=== PATIENT | male | born 1985 | race Caucasian/White ===

== ENCOUNTER 2020-03-27 18:53 | Observation (INO) | payer OTHER, SELFPAY ==
[2020-03-27 18:57] VITALS: BP 184/79; PULSE 100; RESP 16; TEMP 36.6; O2SAT 98; BMI 29.4
[2020-03-27 22:38] VITALS: BP 137/67; PULSE 90; RESP 16; O2SAT 99
--- NOTE | 2020-03-27 22:39 | DI.RAD.S_ITS ---
PROCEDURE: XR FINGER RT MIN 2V INDICATIONS: Injury/pain TECHNIQUE: AP hand, 2 views of the right 3rd finger(s) acquired. COMPARISON: None. FINDINGS: Bones: No fractures or dislocations. No suspicious bony lesions. Soft tissues: No suspicious soft tissue calcifications. No radiodense foreign bodies. No soft tissue gas. IMPRESSION: No fracture. No osseous lesion. If symptoms and/or clinical suspicion for pathology persists, further assessment with repeat radiographs (7-10 days) or advanced imaging (e.g. CT, MRI or bone scan) should be considered. Dictated by: Heidi Lombardo MD, PhD on 03/28/2020 at 9:10 Approved by: Heidi Lombardo MD, PhD on 03/28/2020 at 9:11
--- NOTE | 2020-03-27 22:39 | ED_ITS ---
HPI - Wound/Laceration General Chief Complaint: Wound/Laceration Stated Complaint: middle finger right hand redness and swelling Time Seen by Provider: 03/27/20 22:24 Source: patient Mode of arrival: Ambulatory History of Present Illness HPI narrative: Patient bitten by his dog yesterday 6:30 p.m.. Complains of right middle finger pain and swelling with discharge at the volar PIP joint. There is edema. No fever chills. Tetanus up-to-date. Related Data Allergies Allergy/AdvReac Type Severity Reaction Status Date / Time diphenhydramine Allergy Unknown Verified 03/27/20 19:00 [From Triaminic Allergy] Review of Systems Review of Systems Narrative: GENERAL: Denies chills, fatigue, malaise, fever, sweats. HEENT: Denies sinus pain, ear pain, sore throat, difficulty swallowing RESPIRATORY: Denies dyspnea, cough CARDIOVASCULAR: Denies chest pain, palpitations, edema, GASTROINTESTINAL: Denies nausea, vomiting, abdominal pain, diarrhea, constipation, melena. : Denies dysuria, frequency, hematuria MUSCULOSKELETAL: Complains of bony pain SKIN: Denies rash, skin lesions NEUROLOGIC: Denies weakness, headache, numbness, change in speech, confusion PSYCHIATRIC: No SI or HI or hallucinations ROS Unobtainable: All systems reviewed & are unremarkable except as noted in HPI and below Patient History Social History household members: significant other and children Smoking Status: Current every day smoker alcohol intake: never Smoking Status: Current every day smoker Substance Use Type: does not use Exam Narrative Exam Narrative: GENERAL: patient appears stated age. Well-nourished, well- developed patient, in no distress, not toxic not dyspneic HEAD: Normocephalic. . EXTREMITIES: No gross deformities. Examination right hand. There is tenderness edema at the PIP joint of the middle finger. There is small pustule at the volar surface of the joint as well. Finger held in slight flexion. Mild pain with extension of the finger. There is circumferential edema at that joint area. Tenderness to the volar surface of the PIP joint. Early Knavel signs present NEURO: AOx4. SKIN: Warm and dry PSYCH: Not anxious, is cooperative Initial Vital Signs Initial Vital Signs: Vital Signs Temperature 97.8 F 03/27/20 18:57 Pulse Rate 100 H 03/27/20 18:57 Respiratory Rate 16 03/27/20 18:57 Blood Pressure 184/79 H 03/27/20 18:57 Pulse Oximetry 98 03/27/20 18:57 Course Course Course Narrative: Will need admission after consult with Orthopedics. Early t enosynovitis Decision to Admit Date: 03/28/20 Decision to Admit time: 00:43 Orders Ordered: ED Orders 03/27/20 22:39 XR finger RT min 2V Stat 03/28/20 00:10 Complete Blood Count AUTO DIFF Stat Comprehensive Metabolic Panel Stat Lactate (Lactic Acid) Stat Procalcitonin Stat 03/28/20 00:55 COVID19 Stat Enoxaparin Sodium (Enoxaparin 40 Mg/0.4 Ml Syringe) 40 mg SUBCUT DAILY ORTEGA Ketorolac Tromethamine (Ketorolac 10 Mg Tablet) 10 mg PO Q6HR PRN PRN Reason: Pain, Moderate (4-6) Stop: 04/02/20 01:11 Naloxone HCl (Naloxone 0.4 Mg/Ml Vial) 0.2 mg IV Q2MIN PRN PRN Reason: Opiate Reversal Ondansetron HCl (Ondansetron 4 Mg Odt) 4 mg PO Q8HR PRN PRN Reason: Nausea And Vomiting Discontinued Medications Amoxicillin/Clavulanate Potassium (Amoxicillin/Clav 875/125 Mg) 1 tab PO NOW ONE Stop: 03/27/20 22:39 Last Admin: 03/27/20 22:52 Dose: 1 tab Documented by: GILMER Vancomycin HCl (Vancomycin) 1,000 mg in 200 mls @ 200 mls/hr IV NOW ONE Stop: 03/28/20 01:33 Last Infusion: 03/28/20 01:42 Dose: 200 mls/hr Documented by: Admin: 03/28/20 01:20 Dose: 200 mls/hr Documented by: THERON Ceftriaxone Sodium/Dextrose (Rocephin) 1 gm in 50 mls @ 100 mls/hr IV NOW ONE Stop: 03/28/20 01:03 Last Infusion: 03/28/20 01:17 Dose: 0 mls/hr Documented by: Infusion: 03/28/20 01:16 Dose: 0 mls/hr Documented by: Admin: 03/28/20 00:49 Dose: 100 mls/hr Documented by: GILMER Reevaluation(s) Reevaluation #1: Reviewed results and treatment plan with patient. He agrees for admission Time: 00:44 Consultations Consultation #1: Spoke with orthopedics Dr. Pineda. Recommends admission to hospitalist for IV antibiotics and recheck in the morning Time: 00:44 Consultation #2: Spoke with hospitalist, she will admit Time: 00:44 Vital Signs Vital signs: Vital Signs - 8 hr 03/27/20 22:38 Pulse Rate 90 Respiratory Rate 16 Blood Pressure 137/67 Pulse Oximetry 99 MDM - Wound/Laceration Differential Diagnosis Differential diagnosis: Likely other (Flexor tenosynovitis) Lab Data Attestation: I reviewed the patient's lab results. Result diagrams: 03/28/20 00:10 03/28/20 00:10 Labs: Lab Results 03/28/20 03/28/20 03/28/20 Range/Units 00:10 00:10 00:10 WBC 8.8 (4.5-11.0) X10^3/uL RBC 5.18 (4.5-5.9) X10^6/uL Hgb 15.4 (13.5-17.5) g/dL Hct 45.3 (41-53) % MCV 87.5 (80-100) fL MCH 29.6 (26-34) PG MCHC 33.9 (30-36) % RDW 12.3 (11.6-14.8) % Plt Count 255 (150-400) X10^3/uL Neut % (Auto) 47.1 L (50-75) % Lymph % (Auto) 42.3 H (25-40) % [place] % (Auto) 8.5 (3-14) % Eos % (Auto) 1.9 L (2-4) % Baso % (Auto) 0.2 (0-2) % Neut # (Auto) 4100 (2967-2299) /uL Lymph # (Auto) 3700 (1843-9412) /uL [place] # (Auto) 700 (0-900) /uL Eos # (Auto) 200 (0-450) /uL Baso # (Auto) 0 (0-100) /uL Sodium 140 (137-145) mmol/L Potassium 3.6 (3.4-5.1) mmol/L Chloride 104 (98-107) mmol/L Carbon Dioxide 31 (22-32) mmol/L BUN 16 (9-20) mg/dL Creatinine 1.11 (0.66-1.25) mg/dL Estimated GFR > 60.0 (>60) mL/min BUN/Creatinine Ratio 14.4 (6-22) Glucose 97 (70-100) mg/dL Lactate (0.7-2.1) mmol/L Calcium 9.6 (8.4-10.2) mg/dL Total Bilirubin 0.3 (0.2-1.3) mg/dL AST 41 (17-59) IU/L ALT 53 H (<50) IU/L Alkaline Phosphatase 62 (38-126) U/L Total Protein 7.9 (6.3-8.2) g/dL Albumin 4.6 (3.5-5.0) g/dL Globulin 3.3 (1.7-4.1) g/dL Albumin/Globulin Ratio 1.4 (1.0-2.8) Procalcitonin < 0.05 (<0.5) ng/mL COVID-19 PCR (Negative) 03/28/20 03/28/20 Range/Units 00:10 00:55 WBC (4.5-11.0) X10^3/uL RBC (4.5-5.9) X10^6/uL Hgb (13.5-17.5) g/dL Hct (41-53) % MCV (80-100) fL MCH (26-34) PG MCHC (30-36) % RDW (11.6-14.8) % Plt Count (150-400) X10^3/uL Neut % (Auto) (50-75) % Lymph % (Auto) (25-40) % [place] % (Auto) (3-14) % Eos % (Auto) (2-4) % Baso % (Auto) (0-2) % Neut # (Auto) (2198-4926) /uL Lymph # (Auto) (3345-3313) /uL [place] # (Auto) (0-900) /uL Eos # (Auto) (0-450) /uL Baso # (Auto) (0-100) /uL Sodium (137-145) mmol/L Potassium (3.4-5.1) mmol/L Chloride (98-107) mmol/L Carbon Dioxide (22-32) mmol/L BUN (9-20) mg/dL Creatinine (0.66-1.25) mg/dL Estimated GFR (>60) mL/min BUN/Creatinine Ratio (6-22) Glucose (70-100) mg/dL Lactate 1.2 (0.7-2.1) mmol/L Calcium (8.4-10.2) mg/dL Total Bilirubin (0.2-1.3) mg/dL AST (17-59) IU/L ALT (<50) IU/L Alkaline Phosphatase (38-126) U/L Total Protein (6.3-8.2) g/dL Albumin (3.5-5.0) g/dL Globulin (1.7-4.1) g/dL Albumin/Globulin Ratio (1.0-2.8) Procalcitonin (<0.5) ng/mL COVID-19 PCR Negative (Negative) Imaging Data Extremity x-ray #1: Radiologist's Impression: X-ray results faxed. Right middle finger. No acute fracture no radiopaque foreign body. Mild soft tissue swelling 3rd digit. MDM Narrative Medical decision making narrative: Appropriate for admission, early flexor tenosynovitis, reviewed with orthopedist Discharge Plan Departure Patient Disposition: Admitted as Observation Clinical Impression: Flexor tenosynovitis of finger Admit Date/Time: 03/28/20 00:58 Admit Provider: Meliza Diggs
[2020-03-27] MEDS: AMOXICILLIN/CLAV 875/125 MG 1 TAB PO (22:52)
[2020-03-28] VITALS (7 sets, daily range): BP systolic 110–127; BP diastolic 60–73; PULSE 68–74; RESP 15–18; TEMP 36.3–36.9; O2SAT 97–98; BMI 29.2
[2020-03-28 00:44] LABS: Add Manual Diff / Slide Review NO; Basophils Absolute Auto 0 /uL (0-100); Basophils Percent Auto 0.2 % (0-2); Eosinophils Absolute Auto 200 /uL (0-450); Eosinophils Percent Auto 1.9 % (2-4); Hematocrit 45.3 % (41-53); Hemoglobin 15.4 g/dL (13.5-17.5); Lymphocytes Absolute Auto 3700 /uL (1100-4500); Lymphocytes Percent Auto 42.3 % (25-40); Mean Corpuscular HGB Conc 33.9 % (30-36); Mean Corpuscular Hemoglobin 29.6 PG (26-34); Mean Corpuscular Volume 87.5 fL (80-100); Monocytes Absolute Auto 700 /uL (0-900); Monocytes Percent Auto 8.5 % (3-14); Neutrophils Absolute Auto 4100 /uL (1500-7000); Neutrophils Percent Auto 47.1 % (50-75); Platelet Count 255 X10^3/uL (150-400); Red Blood Cell Count 5.18 X10^6/uL (4.5-5.9); Red Cell Distribution Width 12.3 % (11.6-14.8); White Blood Cell Count 8.8 X10^3/uL (4.5-11.0)
[2020-03-28] MEDS: CEFTRIAXONE 1 GM/50 ML FROZ.PIGGY IV (00:49)
[2020-03-28 00:51] LABS: Lactate (Lactic Acid) 1.2 mmol/L (0.7-2.1)
[2020-03-28 01:10] LABS: Alanine Aminotransferase 53 IU/L (<50); Albumin 4.6 g/dL (3.5-5.0); Albumin Globulin Ratio 1.4 (1.0-2.8); Alkaline Phosphatase 62 U/L (38-126); Aspartate Aminotransferase 41 IU/L (17-59); BUN Creatinine Ratio 14.4 (6-22); Bilirubin Total 0.3 mg/dL (0.2-1.3); Blood Urea Nitrogen 16 mg/dL (9-20); Calcium 9.6 mg/dL (8.4-10.2); Carbon Dioxide 31 mmol/L (22-32); Chloride 104 mmol/L (98-107); Estimated Glomerular Filt Rate > 60.0 mL/min (>60); Globulin 3.3 g/dL (1.7-4.1); Glucose 97 mg/dL (70-100); HEMOLYSIS 20 (0-50); Potassium 3.6 mmol/L (3.4-5.1); Sodium 140 mmol/L (137-145); Total Protein 7.9 g/dL (6.3-8.2)
[2020-03-28] MEDS: VANCOMYCIN 1,000 MG/200 ML PIGGYBACK 200 MG IV (01:20)
[2020-03-28 01:25] LABS: COVID19 -Nasal RAPID Negative (Negative)
[2020-03-28 01:25] LABS: Procalcitonin < 0.05 ng/mL (<0.5)
--- NOTE | 2020-03-28 05:39 | PM.HP.1 ---
History of Present Illness History of Present Illness Date Patient Seen: 03/28/20 Time Patient Seen: 01:15 Chief complaint: middle finger right hand redness and swelling Narrative: Patient Nathan register a 34-year-old male present to the emergency room following being bitten by his dog yesterday 6:30 p.m. He complained of right middle finger pain and swelling with discharge at the volar PIP joint. There is edema. Patient denied nausea, vomiting, fever, body aches, and chills. Tetanus up-to-date. Patient's finger x-ray of the right 3rd finger demonstrated flexor tenosynovitis of finger, lactate 1.2, early Knavel signs present. ER consult with Ortho recommended patient be admitted for IV antibiotic treatment and evaluation for possible surgical I&D tomorrow. Patient History Surgical History (Updated 03/28/20 @ 06:15 by LOGAN Rondon) History of tonsillectomy Family & Social History Family History (Updated 03/28/20 @ 06:15 by LOGAN Rondon) Other Adopted Social History: household members fiancee and 4 children Prior Living Arrangements House Safety & Behavioral: Feels Safe in Current Yes Environment Been Physically Hurt or No Threatened By a Person Suicidal Ideation Description None Suicide Plan Description No Plan Tobacco & Substance use: Tobacco type cigarettes Smoking Status Current every day smoker Smoking packs per day 0.5 alcohol intake never Substance Use Type does not use Meds Home Medications and Allergies Allergies Allergy/AdvReac Type Severity Reaction Status Date / Time diphenhydramine Allergy Unknown Verified 03/27/20 19:00 [From Triaminic Allergy] Review of Systems Review of Systems ROS: Yes All systems reviewed with the patient and are negative except as otherwise documented Constitutional Constitutional: Reports system reviewed and no additional complaints, except as documented Eyes Eyes: Reports system reviewed and no additional complaints, except as documented ENT Ears, Nose, Mouth, and Throat: Yes system reviewed and no additional complaints, except as documented Cardiovascular Cardiovascular: Reports system reviewed and no additional complaints, except as documented Respiratory Respiratory: Reports system reviewed and no additional complaints, except as documented Gastrointestinal Gastrointestinal: Reports system reviewed and no additional complaints, except as documented Genitourinary Genitourinary: Reports system reviewed and no additional complaints, except as documented Musculoskeletal Musculoskeletal: Reports arthralgias, Reports joint swelling and Reports limited range of motion Comments: Right Hand 3rd finger Integumentary/Breasts Skin/Breast: Reports erythema, Reports skin pain and Reports skin swelling Neurologic Neurologic: Reports system reviewed and no additional complaints, except as documented Psychiatric Psychiatric: Reports system reviewed and no additional complaints, except as documented Endocrine Endocrine: Reports system reviewed and no additional complaints, except as documented Hematologic/Lymphatic Hematologic/Lymphatic: Reports system reviewed and no additional complaints, except as documented Allergic/Immunologic Allergic/Immunologic: Reports system reviewed and no additional complaints, except as documented Exam Vital Signs (past 8 hours): - 03/27/20 22:38 03/28/20 01:40 03/28/20 01:45 Temperature 97.6 F Pulse Rate 90 73 Respiratory Rate 16 18 Blood Pressure 137/67 123/66 Pulse Oximetry 99 97 97 Oxygen Delivery Method Room Air Oxygen Flow Rate 0 Narrative Exam Narrative: General: this is a well groomed well nourished male in no distress at this time HEENT: Normocephalic, atraumatic, extraocular muscles intact, oropharynx is clear and mucous membranes are moist, neck is supple and symmetrical, trachea is midline, no thyroid enlargement, nontender, with no masses palpated. Lungs: Auscultation of all lung self are clear without adventitious sounds wheezes rhonchi or rales Cardiac: S1-S2 with regular rate and rhythm without murmur, rubs or gallops, no carotid bruit. Abdomen soft, nontender, negative for clinically or masses, bowel sounds are present in all 4 quadrants, no guarding or rebound, no CVA tenderness. Musculoskeletal: Muscle strength and tone are equal within normal limits no deformity, crepitus, or effusions noted with the exception of the 3rd finger on the right hand see description under extremities. Extremities: No gross deformities. Examination right hand. There is tenderness edema at the PIP joint of the middle finger. There is small pustule at the volar surface of the joint as well. Finger held in slight flexion. Mild pain with extension of the finger. There is circumferential edema at that joint area. Tenderness to the volar surface of the PIP joint. Early Knavel signs present Skin: Warm dry and intact without rashes, ulcerations or petechiae with the exception of the above noted 3rd finger right hand. Neuro: Patient is alert and orientated x3, appropriate affect and mood, strength is 5/5 in all extremities, sensation to touch intact, cranial nerves no gross deficit noted. Objective Labs Result Diagrams: 03/28/20 00:10 03/28/20 00:10 Labs: Laboratory Results - last 24 hr 03/28/20 03/28/20 12 00:10 00:10 00:10 WBC 8.8 RBC 5.18 Hgb 15.4 Hct 45.3 MCV 87.5 MCH 29.6 MCHC 33.9 RDW 12.3 Plt Count 255 Neut % (Auto) 47.1 L Lymph % (Auto) 42.3 H [place] % (Auto) 8.5 Eos % (Auto) 1.9 L Baso % (Auto) 0.2 Neut # (Auto) 4100 Lymph # (Auto) 3700 [place] # (Auto) 700 Eos # (Auto) 200 Baso # (Auto) 0 Sodium 140 Potassium 3.6 Chloride 104 Carbon Dioxide 31 BUN 16 Creatinine 1.11 Estimated GFR > 60.0 BUN/Creatinine Ratio 14.4 Glucose 97 Lactate Calcium 9.6 Total Bilirubin 0.3 AST 41 ALT 53 H Alkaline Phosphatase 62 Total Protein 7.9 Albumin 4.6 Globulin 3.3 Albumin/Globulin Ratio 1.4 Procalcitonin < 0.05 COVID-19 PCR 03/28/20 03/28/20 00:10 00:55 WBC RBC Hgb Hct MCV MCH MCHC RDW Plt Count Neut % (Auto) Lymph % (Auto) [place] % (Auto) Eos % (Auto) Baso % (Auto) Neut # (Auto) Lymph # (Auto) [place] # (Auto) Eos # (Auto) Baso # (Auto) Sodium Potassium Chloride Carbon Dioxide BUN Creatinine Estimated GFR BUN/Creatinine Ratio Glucose Lactate 1.2 Calcium Total Bilirubin AST ALT Alkaline Phosphatase Total Protein Albumin Globulin Albumin/Globulin Ratio Procalcitonin COVID-19 PCR Negative Assessment & Plan Assessment & Plan narrative: Patient presented to the emergency room for a dog bite and trauma injury to the right hand 3rd finger. Finger x-ray demonstrated flexor tenosynovitis of the finger, lactate 1.2. ER consult with Ortho recommended patient be admitted for IV antibiotic and evaluation for possible surgical I&D. 1. Flexor tenosynovitis of the finger, right hand 3rd digit PIP joint, secondary to dog bite, acute, present on admission -finger x-ray: Noted soft tissue swelling of the 3rd digit representing flexor tenosynovitis of the finger of right hand 3rd digit. -patient was given IV: 1 g vancomycin, 1 g Rocephin, and 1 tab of Augmentin. -patient to be evaluated in the a.m. for possible surgical I&D -CBC within normal limits, CMP within normal limits, lactate 1.2, procalcitonin negative -vital signs monitored q.4 hours, monitoring for compartment syndrome/sepsis Code status: Full code COVID PCR: Negative Decision maker: Junior Wright [id number]:None VTE prophylaxis: Enoxaparin 40 mg Quality VTE Deep Vein Thrombosis/Pulmonary Embolism Present on Admission: Yes
--- NOTE | 2020-03-28 07:24 | P.CONS_ITS ---
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 He thinks on Tuesday. Bite to the middle finger volar surface of the PIP. Has a smaller more superficial bite marked dorsal at the same level. Yd later this became more swollen and painful at the volar wound. There is some swelling and redness and a pustule developed. Presented to the ER on 03/27/2020. There was some concern for early flexor tenosynovitis with a mildly flexed posture. He was admitted for observation IV antibiotics and evaluation for possible surgery. Denies numbness denies tingling. No other injuries. Denies fevers chills nausea vomiting. COVID was negative in the ER. Labs are otherwise within normal limits. initiated on IV antibiotics. This morning I had does not dorsum much of a change better or worse with his finger at endorses 3 focal pain right around the area of the bite with focal swelling. Does have a slight flexed posture but no fusiform swelling of the digit and is able to flex and extend the digit quite well. No streaking. Meds Home Medications and Allergies Allergies Allergy/AdvReac Type Severity Reaction Status Date / Time diphenhydramine Allergy Unknown Verified 03/27/20 19:00 [From Triaminic Allergy] Review of Systems Review of Systems ROS: Yes All systems reviewed with the patient and are negative except as otherwise documented Exam Vital Signs (past 8 hours): - 03/28/20 01:40 03/28/20 01:45 03/28/20 05:08 Temperature 97.6 F Pulse Rate 73 Respiratory Rate 18 Blood Pressure 123/66 Pulse Oximetry 97 97 97 03/28/20 06:00 Temperature 97.7 F Pulse Rate 72 Respiratory Rate 15 Blood Pressure 127/73 Pulse Oximetry 97 Oxygen Delivery Method Room Air Oxygen Flow Rate 0 Narrative Exam Narrative: Alert oriented male no acute distress HEENT exam normocephalic atraumatic Respiratory exam unlabored on room air lungs clear to auscultation CV exam regular rate and rhythm Skin exam multiple tattoos on the upper extremities Musculoskeletal exam moving all extremities freely. Right hand exam shows focal puncture wound just distal to the level of the PIP ulnarly on the volar surface of the middle finger right hand. There is some focal swelling and tenderness. No active drainage. Does hold the finger in a slightly flexed posture about 20? but is able to flex and extend all digits. No tenderness along the flexor tendon sheath in the palm or over the proximal phalanx. Sensation grossly intact to light touch median radial ulnar nerves. Full range of motion of the wrist. Objective Imaging Hand x-ray right: My impression: Three views of the [facility] AP oblique lateral demonstrate swelling around the volar PIP joint middle and proximal phalanx 3rd finger no evidence of fracture no foreign bodies. Labs Result Diagrams: 03/28/20 00:10 03/28/20 00:10 Labs: Laboratory Results - last 24 hr 03/28/20 03/28/20 03/28/20 00:10 00:10 00:10 WBC 8.8 RBC 5.18 Hgb 15.4 Hct 45.3 MCV 87.5 MCH 29.6 MCHC 33.9 RDW 12.3 Plt Count 255 Neut % (Auto) 47.1 L Lymph % (Auto) 42.3 H [place] % (Auto) 8.5 Eos % (Auto) 1.9 L Baso % (Auto) 0.2 Neut # (Auto) 4100 Lymph # (Auto) 3700 [place] # (Auto) 700 Eos # (Auto) 200 Baso # (Auto) 0 Sodium 140 Potassium 3.6 Chloride 104 Carbon Dioxide 31 BUN 16 Creatinine 1.11 Estimated GFR > 60.0 BUN/Creatinine Ratio 14.4 Glucose 97 Lactate Calcium 9.6 Total Bilirubin 0.3 AST 41 ALT 53 H Alkaline Phosphatase 62 Total Protein 7.9 Albumin 4.6 Globulin 3.3 Albumin/Globulin Ratio 1.4 Procalcitonin < 0.05 COVID-19 PCR 03/28/20 03/28/20 00:10 00:55 WBC RBC Hgb Hct MCV MCH MCHC RDW Plt Count Neut % (Auto) Lymph % (Auto) [place] % (Auto) Eos % (Auto) Baso % (Auto) Neut # (Auto) Lymph # (Auto) [place] # (Auto) Eos # (Auto) Baso # (Auto) Sodium Potassium Chloride Carbon Dioxide BUN Creatinine Estimated GFR BUN/Creatinine Ratio Glucose Lactate 1.2 Calcium Total Bilirubin AST ALT Alkaline Phosphatase Total Protein Albumin Globulin Albumin/Globulin Ratio Procalcitonin COVID-19 PCR Negative Assessment & Plan Assessment and plan (1) Dog bite of right hand including fingers with infection: Problem details: Patient is a focal puncture wound to the volar middle finger right hand with focal swelling and tenderness in that area with a pustule. He has a mildly flexed posture but otherwise focal tenderness to palpation rather than fusiform swelling or pain along the flexor tendon sheath. Presentation consistent with infected dog bite puncture wound rather than flexor tenosynovitis. I discussed with on going on infection can develop flexor tenosynovitis. Given the appearance of the puncture wound I do recommend a debridement of the wound. This will be left open to heal and he will start warm soapy soaks on postoperative day 1 and dressing changes. And would be appropriate for discharge with oral antibiotics after the debridement procedure. Discussed risks benefits and alternatives and risk for requiring additional surgery for persistent infection and risks of finger stiffness. He understands and agrees with the plan. The risks and benefits of the procedure have been discussed with the patient even opportunity to ask questions. The risks of surgery include but are not limited to infection, malunion, nonunion, persistence of pain, damage to nerves and blood vessels, posttraumatic arthritis, DVT, PE, cardiopulmonary complications and . The patient expressed a thorough understanding of the risks and benefits of surgery and has elected to proceed. Consent was signed. And the site was marked. Status: Acute
[2020-03-28] MEDS: ENOXAPARIN 40 MG/0.4 ML SYRINGE SUBCUT (08:25)
--- NOTE | 2020-03-28 09:38 | OT.IP.EVAL ---
Current Diagnoses Local infection of the skin and subcutaneous tissue, unspecified (03/28/20) Open bite of unspecified finger without damage to nail, initial encounter (03/28/20) Open bite of right hand, initial encounter (03/28/20) Bitten by dog, initial encounter (03/28/20) Surgery Performed Operation Date: 03/28/20 14:45 <No data on this case meets the specified criteria> Surgical History (Last Reviewed 03/28/20 @ 07:27 by Zina Deluca MD) History of tonsillectomy Occupational Therapy Inpatient Evaluation/Re-Eval M1 PT/OT-IP Prior Functional Status Start: 03/28/20 13:40 Freq: NEEDED Status: Active Protocol: Document 03/28/20 13:40 CGR (Rec: 03/28/20 13:47 CGR [id number]) Medical Review Prior Functional Status Medical History Reviewed Yes Communication Pt is an effective verbal communicator. Mobility and Gait Pt is IND at baseline Activities of Daily Living and IADL's Pt is IND at baseline Social History Household Members significant other,children Living Arrangements House Number of Floors (Floors) Two Floors Number of Stairs To Enter/Railing? Pt has no steps to enter and ~ 18 steps to the second floor with railing on L assending. 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 M2 OT-IP Current Condition Start: 03/28/20 13:40 Freq: Status: Active Protocol: Document 03/28/20 13:40 CGR (Rec: 03/28/20 13:47 CGR [id number]) Occupational Therapy Current Condition Current Condition Evaluation Date 03/28/20 Treatment Diagnosis fx tensoynovitis of the finger R hand 3rd digit PIP Diagnosis Onset Date 03/28/20 M3 OT- IP Subjective and Pain Start: 03/28/20 13:40 Freq: Status: Active Protocol: Document 03/28/20 13:40 CGR (Rec: 03/28/20 13:47 CGR [id number]) OT- Subjective Occupational Therapy Visit Type Type Initial Evaluation Visit Start Time 09:23 Visit Stop Time 09:38 Total Visit Minutes 15 OT Pain Assessment Pain When Pain Assessed At Rest Pain Present Pain Present Denied Pain M4 OT- IP ADL's Start: 03/28/20 13:40 Freq: Status: Active Protocol: Document 03/28/20 13:40 CGR (Rec: 03/28/20 13:47 CGR [id number]) OT [id number] Comments OT Self-Feeding Comments Not meal time OT ADL-Grooming General Evaluation Grooming Ability Independent OT ADL-Oral Care General Eval Oral Care Ability Independent OT ADL-Dressing General Eval Upper Body Dressing Ability Independent Lower Body Dressing Ability Independent OT ADL-Toileting General Evaluation Toileting Ability Independent OT ADL-Bathing Comments OT Bathing Comments Not performed M5 OT- IP IADL's Start: 03/28/20 13:40 Freq: Status: Active Protocol: Document 03/28/20 13:40 CGR (Rec: 03/28/20 13:47 CGR [id number]) OT-Instrumental Activities of Daily Living Deficits IADL Deficits Identified No Deficits Home Safety Awareness Awareness of Need for Assistance at Home Good Awareness Ability to Problem Solve Emergency Able to Problem Solve Situations M6 OT- IP Functional Cognition Start: 03/28/20 13:40 Freq: Status: Active Protocol: Document 03/28/20 13:40 CGR (Rec: 03/28/20 13:47 CGR [id number]) Cognitive Factors Limiting Selfcare Function Cognitive Ability Level of Alertness Alert Patient Orientation Name,Age,Birthday,Month,Date, Year,Day of Week,Place, Situation Attention Span Ability Capable of Focused Attention, Capable of Sustained Attention Ability to Follow Commands Able to Follow Multi-Step Commands Memory Description No Deficits Noted Safety Awareness No Deficits Noted Problem Solving Ability No deficits Noted OT- Vision and Hearing OT- Hearing Assessment OT- Hearing Assessment WFL OT- Vision Assessment Visual Acuity WFL Visual Attentiveness WFL Occular Pursuits WFL Visual Convergence WFL M7 OT- IP Mobility and Balance Start: 03/28/20 13:40 Freq: Status: Active Protocol: Document 03/28/20 13:40 CGR (Rec: 03/28/20 13:47 CGR [email or web address]) OT- Bed Mobility Assessment Rolling Type of Rolling Roll to Left Level of Assistance Independent Supine to Sit Supine to Sit Assist Independent Sit to Supine Sit to Supine Assist Independent Scooting Scooting to Edge of Bed Independent OT-Transfer Assessment Sit to and From Stand Sit to and from Stand Independent Transfers Transfer Ability Independent Technique Transfer Destination Bed,Chair,Toilet Transfer Technique Stand Step Pivot Devices Transfer Assistive Devices None Comments Mobility Comments PT is IND in all mobility OT- Balance Assessment Sitting Balance and Reactions Static Sitting Balance Ability Normal Dynamic Sitting Balance Ability Normal Standing Balance and Reactions Static Standing Balance Ability Normal Dynamic Standing Balance Ability Normal M8 OT- IP Objective Assessments Start: 03/28/20 13:40 Freq: Status: Active Protocol: Document 03/28/20 13:40 CGR (Rec: 03/28/20 13:47 CGR [id number]) OT Gross Range of Motion Upper Extremity Range of Motion Assessment Within Functional Limits ROM Impairments Pt with less ROM to the R middle finger but the range is WNL. Educated pt on exercises to assist with ROM. Pt states understanding and performed x10 reps. OT Strength Upper Extremity Strength Assessment Within Functional Limits OT- Coordination Assessment Upper Extremity Finger to Nose Test Within Functional Limits Finger Tapping Test Within Functional Limits OT-Muscle Tone Assessment Muscle Tone WNL Yes OT Sensation Assessment Edema Edema Present Edema Comments To the R middle finger M9 OT- IP Assessment and Plan Start: 03/28/20 13:40 Freq: Status: Active Protocol: Document 03/28/20 13:40 CGR (Rec: 03/28/20 13:47 CGR [email or web address]) OT Summary Assessment and Plan Potential Rehabilitation Potential Excellent Analytic Complexity at Evaluation Low Summary OT Impairments Pain,Range of Motion Progress Towards Goals Goals Met Assessment Summary Pt presents as a low complexity evaluation s/p admit for swollen R middle finger after dog bite. Pt is planned for sx this afternoon. Educated on ROM to the finger and advised to perform unless told otherwise by his MD after sx. No further OT needs. Frequency of Treatment Frequency Of Treatment Discharge Discharge Recommendations OT Discharge Recommendations Home Transportation Needs at Discharge Private Vehicle
--- NOTE | 2020-03-28 10:08 | PC.NURSE ---
Patient has a dog bite to his r.middle finger, states that opening to bite can hurt at times but he is comfortable now. He is going to have a I&D wash out of finger. OT in room and gave patient a couple of exercises to do with his finger, patient is relaxed at this time. His surgery is suppose to be around 1445.
--- NOTE | 2020-03-28 11:25 | PT-IP ANOTE ---
PT eval order received. Checked EMR and pt in for R middle finger swelling and is going to have surgery later today. Talked to [facility] and stated that pt is independent with mobility. Nurse stated that pt will have surgery later today and d/c home afterwards. will d/c PT eval order.
[2020-03-28] MEDS: ACETAMINOPHEN 325 MG TABLET 975 MG PO (13:19)
[2020-03-28] MEDS: LACTATED RINGERS 1,000 ML 42 ML IV (13:20)
--- NOTE | 2020-03-28 14:46 | CM.IDA ---
Initial DCP Assessment Note Patient is a 34 yo male, resident of [facility]. Patient here under observation for I+D of an infected dog bite, Dr Deluca plans to complete I+D and DC patient home after procedure on po abx. PCP: Not listed, [employer] (?) Payer: [employer] Patient indp and active at baseline, no needs anticipated. PAULO
--- NOTE | 2020-03-28 14:48 | SUR.OPER ---
Supine on padded OR bed, head on pillow, nonoperative arm secured on padded arm boards at <90 degrees abduction, operative arm on hand table, legs uncrossed, safety belt at thigh, tape over blanket over lower legs.
[2020-03-28] MEDS: LIDOCAINE 1% W/EPI 20 ML INJ (15:10)
--- NOTE | 2020-03-28 15:36 | P.OP_ITS ---
Operative Date/Time/Diagnoses Date of procedure: 03/28/20 Time of procedure: 15:00 Pre-op diagnosis: Right hand middle finger dog bite with infection S61.451A Post-op diagnosis: same Procedure & Clinicians Procedure: Irrigation and debridement right hand middle finger CPT code 97361-P5 Same procedure as scheduled: Yes Indications: Nathan is a 34-year-old male sustained a dog bite from his dog a few days previously had focal swelling of the volar right hand middle finger and a puncture wound just distal to the PIP joint. A pustule formed. He was evaluated in the ER with concern for early flexor tenosynovitis. He was admitted for observation started on antibiotics. Evaluated by the orthopedic team in the morning. Was not felt to have flexor tenosynovitis but a focal infection at the area of the puncture wound. But was indicated for debridement of this infection. The risks and benefits of the procedure have been discussed with the patient even opportunity to ask questions. The risks of surgery include but are not limited to infection, stiffness, wound healing problems persistence of pain, damage to nerves and blood vessels, posttraumatic arthritis, DVT, PE, cardiopulmonary complications and . The patient expressed a thorough understanding of the risks and benefits of surgery and has elected to proceed. Consent was signed. Surgeon: Zina Deluca Click Yes if Unassisted: Yes Anesthesia Type: Local (1% lidocaine with epinephrine) Operative Notes Findings: Focal puncture wound volar ulnar middle phalanx just distal to the PIP joint. This was the deep puncture that went down to the flexor tendon sheath but did not penetrated. There was a small amount of purulence encountered on debridement. No purulence or abscess tracking. Closure Type: primary Specimen(s): other (Culture swab from the wound was sent for Gram stain and culture) Estimated Blood Loss (mL): 2 Blood products transfused: none Tourniquet time (min): 5 Procedure in detail: Patient was seen in the preoperative area the site of surgery was marked informed consent confirmed. He was brought back to the operating room positioned supine on the operative table with a hand table on the right side. He elected for procedure under local anesthetic. Formal time-out procedure was performed confirming the patient's side and site of surgery. The patient was on scheduled antibiotics. And received a dose of Ancef. A digital block for the right 3rd finger was carried out through the standard volar metacarpal head approach utilizing 1% lidocaine with epinephrine. While this was setting of the patient was prepped and draped in standard sterile fashion. Once appropriate anesthetic block was and affect the attention was turned to the right middle finger a glove finger return to Harris was used for hemostasis. Next the puncture wound was ellipsed sized and debrided. When this was completed there was a small amount of purulence encountered that was cultured. The wound was explored this was a focal deep puncture down to but not penetrating the flexor tendon sheath. No further purulence was encountered. The wound was copiously irrigated with sterile saline using the bulb syringe and the cysto tubing. 04/15/2005 nylon suture was then placed centrally to approximate the wound no other sutures were placed. Gauze and a Tegaderm were placed. After the glove tourniquet was released and hemostasis achieved. Drape s removed and the patient was taken to the PACU in good condition. There no immediate complications from this procedure. Complications: none Post-operative Condition: stable Disposition: PACU Plan for aftercare: Daily warm soapy soak with water and antibacterial soap. Soak the hand for 15 minutes then replaced new Band-Aid or dry dressing. Continue Augmentin antibiotic. Will be discharged by the primary team home today. Follow up in Orthopedic Clinic 7-10 days for wound check. Follow up sooner if any concerns or worsening signs.
--- NOTE | 2020-03-28 15:49 | SUR.PHASEII ---
Patient came to Phase 2 straight from OR. Did not receive any anesthesia during procedure, only received local. Dressing to thumb C/D/I. Patient awake, alert and oriented and has not received any narcotics. Vital signs stable. Taken back to room 220 and report given to receiving RN Elissa who will discharge patient home per orders.
--- NOTE | 2020-03-28 16:02 | P.DS_ITS ---
History of Present Illness History of Present Illness Date Patient Seen: 03/28/20 Time Patient Seen: 16:02 Chief complaint: middle finger right hand redness and swelling Narrative: As per JOHN Rondon: Patient Nathan register a 34-year-old male present to the emergency room following being bitten by his dog yesterday 6:30 p.m. He complained of right middle finger pain and swelling with discharge at the volar PIP joint. There is edema. Patient denied nausea, vomiting, fever, body aches, and chills. Tetanus up-to-date. Patient's finger x-ray of the right 3rd finger demonstrated flexor tenosynovitis of finger, lactate 1.2, early Knavel signs present. ER consult with Ortho recommended patient be admitted for IV antibiotic treatment and evaluation for possible surgical I&D tomorrow. Discharge Providers Provider Date of admission: 03/28/20 00:58 Discharge Date: 03/28/20 Consults: 03/28/20 01:12 Consult to Discharge Planning Routine Comment: Consult to Occupational Therapy Evaluate & Treat Comment: Physician Instructions: Evaluate and treat Consult to Physical Therapy Evaluate & Treat Comment: Physician Instructions: Evaluate and Treat 03/28/20 15:56 Consult to Respiratory Therapy Evaluate & Treat Comment: Physician Instructions: Evaluate and treat Discharge provider: Devonte Disla DO Summary Hospital Course Discharge Diagnosis: 1. right hand 3rd digit dog bite with infection, acute, present on admission Hospital Course: Patient is a 34-year-old male with no past medical history who presented with worsening pain of his right 3rd finger after a dog bite yesterday. He was seen by Orthopedic surgery and taken to the operating room for operative drainage and debridement. His motion of his right 3rd finger improved to baseline after surgery and he was discharged home with a 10 day course of Augmentin therapy. He will follow-up with orthopedic surgery in 7-10 days for wound check and suture removal. He was given return precautions including fevers, chills, worsening redness and pain. Exam Vital Signs (past 8 hours): - 03/28/20 09:39 03/28/20 13:00 03/28/20 15:35 Temperature 97.3 F L 98.5 F 98.1 F Pulse Rate 74 71 68 Respiratory Rate 16 16 16 Blood Pressure 110/60 110/68 114/73 Pulse Oximetry 97 98 98 Oxygen Delivery Method Room Air Oxygen Flow Rate 0 Narrative Exam Narrative: GENERAL APPEARANCE: Well developed, well nourished, in no acute distress. CHEST: Normal AP diameter and normal contour without any kyphoscoliosis. LUNGS: Auscultation of the lungs revealed no wheezes, rhonchi, or rales. CARDIOVASCULAR: There was a regular rate and rhythm without any murmurs, gallops, rubs. Peripheral pulses were 2+ and symmetric. ABDOMEN: Soft and nontender with normal bowel sounds. No ascites was noted. MUSCULOSKELETAL: R 3rd finger dressing C/d/i, no surrounding erythema induration. Mildly tender. Improved motion after surgery of R 3rd finger. EXTREMITIES: No cyanosis, clubbing or edema. NEUROLOGIC: Alert and oriented x 3. Normal affect. Gait was normal. Strength is +5/5 in the Upper Extremities and Lower Extremities Bilaterally. Sensation to touch was normal. Objective Labs Result Diagrams: 03/28/20 00:10 03/28/20 00:10 Labs: Laboratory Results - last 24 hr 03/28/20 03/28/20 03/28/20 00:10 00:10 00:10 WBC 8.8 RBC 5.18 Hgb 15.4 Hct 45.3 MCV 87.5 MCH 29.6 MCHC 33.9 RDW 12.3 Plt Count 255 Neut % (Auto) 47.1 L Lymph % (Auto) 42.3 H Antelope % (Auto) 8.5 Eos % (Auto) 1.9 L Baso % (Auto) 0.2 Neut # (Auto) 4100 Lymph # (Auto) 3700 Antelope # (Auto) 700 Eos # (Auto) 200 Baso # (Auto) 0 Sodium 140 Potassium 3.6 Chloride 104 Carbon Dioxide 31 BUN 16 Creatinine 1.11 Estimated GFR > 60.0 BUN/Creatinine Ratio 14.4 Glucose 97 Lactate Calcium 9.6 Total Bilirubin 0.3 AST 41 ALT 53 H Alkaline Phosphatase 62 Total Protein 7.9 Albumin 4.6 Globulin 3.3 Albumin/Globulin Ratio 1.4 Procalcitonin < 0.05 COVID-19 PCR 03/28/20 03/28/20 00:10 00:55 WBC RBC Hgb Hct MCV MCH MCHC RDW Plt Count Neut % (Auto) Lymph % (Auto) Antelope % (Auto) Eos % (Auto) Baso % (Auto) Neut # (Auto) Lymph # (Auto) Antelope # (Auto) Eos # (Auto) Baso # (Auto) Sodium Potassium Chloride Carbon Dioxide BUN Creatinine Estimated GFR BUN/Creatinine Ratio Glucose Lactate 1.2 Calcium Total Bilirubin AST ALT Alkaline Phosphatase Total Protein Albumin Globulin Albumin/Globulin Ratio Procalcitonin COVID-19 PCR Negative [facility] History History of tonsillectomy Family History Other Adopted Social History household members: significant other and children Smoking Status: Current every day smoker alcohol intake: never Discharge Plan Discharge Plan Patient Disposition: Home Provider Discharge Comment: You were admitted to the hospital with an infection in your finger after a bite. you had a small drainage procedure with orthopedic surgery. You were given a prescription for an antibiotic, please complete the entire course at home. Please follow up with orthopedic surgery in 7-10 days for wound check and stitch removal, you can call their office directly to schedule. Discharge orders & Medications Prescriptions: New amoxicillin-pot clavulanate [Augmentin] 875-125 mg tablet 1 tab PO Q12H Qty: 20 RF: 0 Follow up/Referrals: Zina Deluca MD [Physician] - 1 Week (f/u I&D, 7-10 day wound check and suture removal) Diet/Activity/Treatments Diet: Diet as Tolerated Activity: Encourage early range of motion of his hand. May remove dressing and do warm soapy soak in water and antibacterial soap at like and dial for about a 15 minutes a daily and then changed bandage to clean Band-Aid. Follow up in orthopedic clinic as scheduled [facility] in 7-10 days for a wound check and stitch removal. Return sooner if worsening symptoms. Continue Augmentin antibiotic Skin/Wound/Dressing Care Report to your healthcare provider any signs of infection, such as:: chills, fever and increased pain Visit Report/Discharge Packet Instructions: DI for Incision and Drainage Discharge Data Attending Provider: Meliza Diggs VTE Deep Vein Thrombosis/Pulmonary Embolism Present on Admission: Yes
--- NOTE | 2020-03-28 16:27 | PC.NURSE ---
Discharge note: Pt A/O x3, VVS per pacu. Discharge packet given to pt along with follow up instructs along with script for oral antibiotic. No questions/concerns. PIV D/c, belongings given to pt. Pt taken down to pov by Lisa
== END 2020-03-28 16:25 | disposition home or self-care (01) ==
LOC: ED 03-28 00:45 → AC 03-28 00:59
PROVIDERS: Orthopaedic Surgery Foot and Ankle Surgery; Admitting Provider Nurse Practitioner Family; Emergency Provider Emergency Medicine; Referring Provider Emergency Medicine; Visit Provider Nurse Practitioner Family
PROC: (CPT 11042; principal; 2020-03-28 14:45)
DX: S61.252A Open bite of right middle finger without damage to nail, initial encounter (principal); L08.9 Local infection of the skin and subcutaneous tissue, unspecified; W54.0XXA Bitten by dog, initial encounter; M65.841 Other synovitis and tenosynovitis, right hand; F17.210 Nicotine dependence, cigarettes, uncomplicated; Z01.812 Encounter for preprocedural laboratory examination; Z20.828 Contact with and (suspected) exposure to other viral communicable diseases
CPT/HCPCS: 11042; 36415; 73140; 80053; 83605; 84145; 85025; 87070; 87075; 87077; 87186; 87205; 87635; 96365; 96367; 96372; 97165; 99283; 99284; G0378; J1650